=== PATIENT | female | born 1990 | race Caucasian/White ===

== ENCOUNTER → 2023-04-01 09:43 | Outpatient (REF) | payer OTHER, SELFPAY | LOC: WDC 09:43 | PROVIDERS: ATTENDING PHYSICIAN Physician Assistant; FAMILY PHYSICIAN Nurse Practitioner Family | DX: N63.21 Unspecified lump in the left breast, upper outer quadrant (principal) | CPT/HCPCS: 76642 ==

== ENCOUNTER → 2023-09-09 14:03 | Outpatient (REF) | payer OTHER, SELFPAY | LOC: WDC 14:03 | PROVIDERS: ATTENDING PHYSICIAN Physician Assistant | DX: R92.8 Other abnormal and inconclusive findings on diagnostic imaging of breast (principal) | CPT/HCPCS: 76642 ==

== ENCOUNTER 2024-05-21 00:14 | Emergency (ER) | payer OTHER, SELFPAY ==
[2024-05-21 00:19] VITALS: BP 121/73
--- NOTE | 2024-05-21 01:53 | ED.GENMED ---
History of Present Illness
General
Chief Complaint: Allergic Reaction
Source: patient
Exam Limitations: none
Time Seen by Provider: 05/21/24 01:32
Nursing documentation reviewed up to this point in time: agreed with
History of Present Illness
History of Present Illness:
Pleasant 33-year-old female presents to the emergency department with allergic reaction. She states that 24 hours ago she awakened with urticaria throughout her body. She went to [facility] emergency department and was treated with steroids and
Benadryl. She states that her symptoms resolved. This morning she awakened and took Benadryl and she was fine all day. This evening the urticaria returned and she took Benadryl with minimal relief. She denies any difficulty swallowing or
breathing. She states that the urticaria is pruritic. She has no known allergies to medicines, but is allergic to cat dander.
Phy Exam
General Physical Exam
General Presentation: well appearing and no apparent distress
General Skin: warm and dry
General Habitus: normal
General Mental: alert
General Hydration: appears well hydrated
ENT Exam
ENT Exam: EOMI, pharynx normal, neck supple and normocephalic
Eye Exam
Eye Exam: PERRL, cornea clear and conjunctiva normal
Cardiovascular Exam
Cardiovascular Exam: regular rate/rhythm, no edema, no murmur and normal peripheral pulses
Pulmonary Exam
Pulmonary Exam: lungs clear, no respiratory distress, no rales, no crackles, no rhonchi, no stridor, no wheezing and no cough
Gastrointestinal Exam
Gastrointestinal Exam: normal bowel sounds, non tender, soft, no organomegaly, no pulsatile mass and non distended
Neurological Exam
Neurological Exam: alert, oriented x3, no motor deficits and speech normal
Musculoskeletal Exam
Musculoskeletal Exam: full ROM and no edema
Skin Exam
Skin Exam: warm/dry, no petechia and erythema (Urticarial rash that follows a pattern of the clothing line)
Psychiatric Exam
Psychiatric Exam: normal mood/affect
Course
Orders/Labs/Results
Orders:
Orders
05/21/24 01:46
Dexamethasone Pf [Decadron] 10 mg PO NOW STA
HydrOXYZINE [Atarax] 25 mg PO NOW STA
05/21/24 01:47
Famotidine [Pepcid] 20 mg PO NOW STA
05/21/24 01:56
HydrOXYZINE [Atarax] 10 mg .ROUTE .STK-MED ONE
05/21/24 01:58
HydrOXYZINE [Atarax] 25 mg .ROUTE .STK-MED ONE
Vital Signs
Initial and Last Documented VS:
Initial Vital Signs
Temp Pulse Resp BP Pulse Ox
98.4 F 77 16 121/73 98
05/21/24 00:19 05/21/24 00:19 05/21/24 00:19 05/21/24 00:19 05/21/24 00:19
Last Documented Vital Signs
Temp Pulse Resp BP Pulse Ox
98.4 F 84 20 100/74 98
05/21/24 00:19 05/21/24 03:30 05/21/24 03:30 05/21/24 03:30 05/21/24 03:52
*Pulse Oximetry
Patient hypoxic: no
*Critical Care Note
Total Time (30-74mins, 75-104mins- exclusive of procedures): Not Applicable
Update Note
Update Note:
Urticaria seems to distributed in a pattern similar to her sports bra and sweatpants. There is urticaria at the sweatpants waistline but not on the abdomen. On the back it appears in a pattern identical to one of her sports bras. She states that
she does wear sports bra.
She denies any new detergents or soaps. I feel that it is possible that the allergen is in her clothing. Possibly in a previous soap or other contaminant.
ED Attending Note
-
Portions of this chart may have been created with voice recognition software.� Occasional wrong word or��sound alike� substitutions may have occurred due to the inherent limitations of voice recognition software.
Discharge Plan
Departure
Patient Disposition: Home (Routine Discharge)
Date of Disposition: 05/21/24
Time of Disposition: 03:29
Patient with high blood pressure during this ER visit?: Yes
Discharge Problem:
Allergic reaction
Instructions: Allergic reaction - ED discharge instructions, BLOOD PRESSURE
Prescriptions:
New
hydroxyzine HCl 25 mg tablet
25 mg PO Q8H PRN (Reason: itching) Qty: 10 0RF
epinephrine [EpiPen] 0.3 mg/0.3 mL auto-injector
0.3 mg IM .STAT PRN (Reason: anaphylaxis) Qty: 1 0RF
famotidine [Pepcid] 20 mg tablet
20 mg PO DAILY Qty: 10 0RF
No Action
prednisone 20 mg Tablet
20 mg PO DAILY
diphenhydramine HCl [Benadryl] 25 mg Capsule
25 mg PO TID PRN (Reason: rash)
Referrals:
Johnny Gomes MD [Family Provider] -
Brenda Fowler MD [Active] -
Activity Restrictions/Additional Instructions:
It was a pleasure meeting you and taking part in your care. We hope for your continued healing and wellness.
Please read discharge instructions in their entirety. However, they are for general education and may not describe your exact diagnosis at discharge. Information on your ER visit and medical conditions were discussed with you along with appropriate
follow up information...
If indicated, please take your medications as instructed and indicated on discharge paperwork.
Please schedule a follow up appointment as directed. Call to schedule an appointment
Please return to the emergency department with ANY change in, persisting, or worsening of symptoms. If any of your symptoms do not improve, or persist, or become more severe within 6-12 hours, please return to the emergency department for further
care.
Please return to the emergency department if you develop a headache, neck pain/stiffness, fever greater than 100.4F, chest pain, shortness of breath, persistent nausea, vomiting, slurred speech, difficulty walking, numbness/tingling, weakness, signs
of infection or any other symptoms that are worrisome to you.
If you have any questions or concerns please do not hesitate to call the Hospital at or E-mail me directly at [email or web address]
Interventions
Interventions:
*Risk Screen - Suicide Last Done: 05/21/24 00:19
*General Assessment Last Done: 05/21/24 02:50
*Neglect/Abuse Screening Last Done: 05/21/24 00:19
*ED- Fall Risk Assessment Last Done: 05/21/24 00:19
*ED COVID-19 Vaccine History Last Done: 05/21/24 00:19
*Nursing Disposition Last Done: 05/21/24 03:52
ED- Cardiac Assessment Last Done: 05/21/24 02:07
ED- Pulmonary Assessment Last Done: 05/21/24 02:07
ED-Skin Assessment Last Done: 05/21/24 02:07
Discharge Date and Time
Discharge Date/Time: 05/21/24 03:52
Print Language: AMHARIC
[2024-05-21] MEDS: ATARAX 25 MG PO (02:01)
[2024-05-21] MEDS: DECADRON 10 MG PO (02:02)
[2024-05-21] MEDS: PEPCID 20 MG PO (02:02)
[2024-05-21 03:30] VITALS: BP 100/74
== END 2024-05-21 03:52 | disposition home or self-care (01) ==
LOC: EMR 00:14
PROVIDERS: EMERGENCY PHYSICIAN Student in an Organized Health Care Education/Training Program; FAMILY PHYSICIAN Internal Medicine
DX: T78.40XA Allergy, unspecified, initial encounter (principal); L50.9 Urticaria, unspecified; Y92.9 Unspecified place or not applicable
CPT/HCPCS: 99282